=== PATIENT | male | born 1990 | race Hispanic/Latino ===

== ENCOUNTER 2017-07-25 16:28 | Emergency (ER) | payer OTHER ==
[2017-07-25 16:39] VITALS: RESP 16; TEMP 98.7
--- NOTE | 2017-07-25 17:20 | ED PDOC ---
HPI: Eye Injury/Pain Time Seen by Provider: 07/25/17 17:09 Chief Complaint (Nursing): ENT Problem Chief Complaint (Provider): Eye injury History Per: Patient History/Exam Limitations: no limitations Onset/Duration Of Symptoms: Days (today 3pm) Current Symptoms Are (Timing): Still Present Additional Complaint(s): Pt. filling a bucket with soapy water (no additives). The water and soap splashed into his left face and eye. Since then he has a little bit of irritation and pain to the left eye. He saw the nurse and they rinsed the eye. Advised to come to the ED. Pt. denies any vision changes. No numbness, tingles, weakness, pain or injury elsewhere. Pain improving. Past Medical History Reviewed: Nursing Documentation, Vital Signs Vital Signs: Last Vital Signs Temp 98.7 F 07/25/17 16:36 Pulse 104 H 07/25/17 16:36 Resp 16 07/25/17 16:36 BP 163/87 H 07/25/17 16:36 Pulse Ox 99 07/25/17 16:36 - Medical History PMH: No Chronic Diseases - Surgical History Surgical History: No Surg Hx - Family History Family History: States: Unknown Family Hx - Living Arrangements Living Arrangements: With Family - Social History Current smoker - smoking cessation education provided: No Alcohol: None Drugs: Denies - Allergies Allergies/Adverse Reactions: Allergies Allergy/AdvReac Type Severity Reaction Status Date / Time No Known Allergies Allergy Verified 07/25/17 16:36 Review of Systems Constitutional: Negative for: Weakness Eyes: Positive for: Redness ENT: Negative for: Nose Discharge, Nose Congestion, Mouth Pain, Mouth Swelling Cardiovascular: Negative for: Chest Pain Respiratory: Negative for: Shortness of Breath Musculoskeletal: Negative for: Neck Pain Skin: Negative for: Rash Neurological: Negative for: Weakness, Numbness, Confusion, Headache Physical Exam - Reviewed Nursing Documentation Reviewed: Yes Vital Signs Reviewed: Yes - Physical Exam Appears: Positive for: Non-toxic, No Acute Distress Head Exam: Positive for: ATRAUMATIC, NORMAL INSPECTION, NORMOCEPHALIC Skin: Positive for: Normal Color, Warm, DRY Eye Exam: Positive for: EOMI, PERRL, Conjunctival injection (mild L). Negative for: Periorbital swelling, Periorbital tenderness Neck: Positive for: Normal, Painless ROM, Supple Cardiovascular/Chest: Positive for: Regular Rate, Rhythm. Negative for: Edema Respiratory: Positive for: CNT, Normal Breath Sounds Back: Positive for: Normal Inspection Extremity: Positive for: Normal ROM Neurologic/Psych: Positive for: Alert, inspector aligning II-XII, Oriented. Negative for: Motor/Sensory Deficits - ECG O2 Sat by Pulse Oximetry: 99 Pulse Ox Interpretation: Normal - Progress ED Course And Treament: 1820: Stable. AAOx3. No pain or vision changes. No fluorescein uptake. Fu with clinic. Rinsed with NS. Disposition - Clinical Impression Clinical Impression: Eye injury - Patient ED Disposition Is Patient to be Admitted: No Counseled Patient/Family Regarding: Diagnosis, Need For Followup - Disposition Referrals: [facility] [Outside] - 07/26/17 Disposition: Routine/Home Disposition Time: 18:22 Condition: STABLE Additional Instructions: Return if not better in 3 days. Instructions: [facility] (ED) Forms: [facility] (Greek)
[2017-07-25 18:33] VITALS: BP 112/61; PULSE 84; O2SAT 98
== END 2017-07-25 18:41 | disposition home or self-care (01) ==
LOC: H.ER 16:28
DX: Z77.098 Contact with and (suspected) exposure to other hazardous, chiefly nonmedicinal, chemicals (principal); Y99.0 Civilian activity done for income or pay